=== PATIENT | male | born 1950 | race African-American/Black ===

== ENCOUNTER → 2017-03-13 | Outpatient (CLI) | payer OTHER ==
--- NOTE | 2017-03-13 10:25 | RAD ---
CT of the chest without contrast, 03/13/2017: History: Follow-up pulmonary opacity Noncontrast scans were obtained as requested. Multiplanar reconstructions were produced. Comparison is made to a study from 09/12/2016. On the previous study, a 35 x 19 mm pulmonary opacity was identified in the posterior costophrenic angle on the right. This density persists. It has flattened out slightly now measuring 34 x 14 mm. There is a new, separate, smaller peripheral parenchymal opacity abutting the pleura more laterally in the right lung base as seen on image 42 of series #2. There is smooth adjacent pleural thickening posteriorly in the right lower chest with a suggestion of a trace amount of right-sided pleural fluid. This has progressed slightly. There are other linear parenchymal opacities in both lung bases which are unchanged and are compatible with scarring. There is a 5 mm pulmonary nodule in the medial aspect of the right upper lobe as best seen on axial image 111 of series #8. Allowing for technical differences this appears to be unchanged. No new or enlarging pulmonary nodules are seen. There has been previous median sternotomy. Scattered coronary artery calcifications are present. 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 No mediastinal adenopathy is identified. The liver demonstrates decreased density in a mildly heterogeneous pattern compatible with patchy fatty infiltration. IMPRESSION: 1. Persistent right basilar pleural-parenchymal opacities, the largest component of which has decreased slightly in size since 09/12/2016. Other components have progressed slightly with a suggestion of a trace amount of associated pleural fluid. The findings suggest a combination of chronic inflammation and scarring. Previous pulmonary embolic disease is a possibility. A neoplastic component cannot be excluded. 2. Additional bibasilar linear pulmonary opacities are unchanged and probably represent scars. 3. Stable tiny right upper lobe pulmonary nodule. 4. Hepatic steatosis. PQRS Compliance Statement: One or more of the following individualized dose reduction techniques were utilized for this examination: 1. Automated exposure control 2. Adjustment of the mA and/or kV according to patient size 3. Use of iterative reconstruction technique
== END | disposition home or self-care (01) ==
LOC: CT 08:09
PROVIDERS: ATTEND Internal Medicine Pulmonary Disease
DX: R93.8 Abnormal findings on diagnostic imaging of other specified body structures (principal)
CPT/HCPCS: 71250

== ENCOUNTER 2018-06-09 16:48 | Inpatient (IN) | payer OTHER ==
[~2018-06-09] VITALS: Ht 177.8 cm; Wt 115.4 kg
--- NOTE | 2018-06-09 18:24 | EKG ---
[facility] [address] [place] [address] Test Date: 2018-06-09 Test Time: 18:18:50 Pat Name: SCOTTY CHÁVEZ Department: Room: Gender: M Lieutenant/Deputy: : 1950 Requested By: TERRY HER Order Number: [id number] Reading MD: Vinicio Hughes MD Measurements Intervals [place] Rate: 89 P: -62 CT: 164 QRS: 67 QRSD: 150 T: -47 QT: 400 QTc: 493 Interpretive Statements PROBABLE SR RBBB NON-SPECIFIC ST/T CHANGES PRIOR INFERIOR INFARCT Electronically Signed On 06-10-2018 15:29:31 CDT by Vinicio Hughes MD
[2018-06-09 18:25] LABS: BILIRUBIN,URINE NEGATIVE (NEG); CLARITY,URINE CLEAR; COLOR,URINE YELLOW; NITRITE,URINE NEGATIVE (NEG); PH,URINE 5.5; PROTEIN,URINE NEGATIVE (NEG-TRACE); UROBILINOGEN,URINE 0.2 mg/dL (0.2 mg/dL)
--- NOTE | 2018-06-09 18:28 | PHYS DOC ---
Past Medical History Past Medical History: CAD, Diabetes-Type II, DVT, High Cholesterol, Heart Disease, MA Past Surgical History: Coronary Bypass Surgery, Other Additional Past Surgical Histo: Trach Alcohol Use: None Drug Use: None Adult General Chief Complaint Chief Complaint: BLOOD SUGAR PROBLEM [facility] HPI Patient is a 68 year old male with a history of diabetes, stent placement 2 years ago and bypass 2 years ago presents the ED complaining of dizziness 1 week. States the dizziness is intermittent. Daughter is in the room and she states she thinks that he is not taking his medicines as he should. Associated symptoms include chest tightness. Rates the pain as 2 out of 10. States it is also intermittent. Denies shortness of breath, nausea/vomiting, abdominal pain, diarrhea, blood in stool, syncope, neck pain or fever. Review of Systems Review of Systems Constitutional: Denies fever or chills [] Eyes: Denies change in visual acuity, redness, or eye pain [] HENT: Denies nasal congestion or sore throat [] Respiratory: Denies cough or shortness of breath [] Cardiovascular: No additional information not addressed in HPI [] GI: Denies abdominal pain, nausea, vomiting, bloody stools or diarrhea [] : Denies dysuria or hematuria [] Musculoskeletal: Denies back pain or joint pain [] Integument: Denies rash or skin lesions [] Neurologic: Denies headache, focal weakness or sensory changes [] All other systems were reviewed and found to be within normal limits, except as documented in this note. Current Medications Current Medications Allergies Allergies Physical Exam Physical Exam Constitutional: Well developed, well nourished, no acute distress, non-toxic appearance. [] HENT: Normocephalic, atraumatic, bilateral external ears normal, oropharynx moist, no oral exudates, nose normal. [] Eyes: PERRLA, EOMI, conjunctiva normal, no discharge. [] Neck: Normal range of motion, no tenderness, supple, no stridor. [] Cardiovascular:Heart rate regular rhythm, no murmur [] Lungs & Thorax: Bilateral breath sounds clear to auscultation [] Abdomen: Bowel sounds normal, soft, no tenderness, no masses, no pulsatile masses. [] Skin: Warm, dry, no erythema, no rash. [] Back: No tenderness, no CVA tenderness. [] Extremities: No tenderness, no cyanosis, no clubbing, ROM intact, no edema. [] Neurologic: Alert and oriented X 3, normal motor function, normal sensory function, no focal deficits noted. [] Psychologic: Affect normal, judgement normal, mood normal. [] Current Patient Data Vital Signs EKG EKG EKG shows Sinus Rhythm at 89 BPM. diffuse t wave inversion. No STEMI.[] Radiology/Procedures Radiology/Procedures [] Course & Med Decision Making Course & Med Decision Making Pertinent Labs and Imaging studies reviewed. (See chart for details) Discussed lab and imaging findings with patient. Patient's glucose found to be and 1063. Patient started on 10 units of insulin, 2 L of fluids and IV insulin drip. Patient also hyperkalemic. Discussed case with attending physician. Calcium gluconate ordered. []Discussed case with hospitalist, Dr. Edwards. Agrees to admission and further management patient. Patient stable for admission. Dragon Disclaimer Dragon Disclaimer This electronic medical record was generated, in whole or in part, using a voice recognition dictation system. Departure Departure Impression: Primary Impression: DKA (diabetic ketoacidoses) Additional Impressions: Hyperkalemia Hyponatremia Disposition: ADMITTED INPATIENT Admitting Physician: Gill Edwards Condition: STABLE Referrals: ELIZABETH CARDOSO MD (PCP) Problem Qualifiers TERRY HER Jun 09, 2018 18:27
[2018-06-09 18:34] LABS: BACTERIA,URINE FEW /HPF (0-FEW); SPERM,URINE PRESENT /HPF; SQUAMOUS EPITHELIAL CELL,UR MOD /LPF
[2018-06-09 18:46] LABS: BASO # 0.1 x10^3/uL (0.0-0.2); BASO % 1 % (0-3); EOS # 0.1 x10^3/uL (0.0-0.7); EOS % 1 % (0-3); HEMATOCRIT 50.7 % (39.0-53.0); HEMOGLOBIN 16.2 g/dL (13.0-17.5); LYMPH # 2.2 x10^3/uL (1.0-4.8); LYMPH % 33 % (24-48); MEAN CORPUSCULAR HEMOGLOBIN 26 pg (25-35); MEAN CORPUSCULAR HGB CONC 32 g/dL (31-37); MEAN CORPUSCULAR VOLUME 82 fL (79-100); MONO # 0.5 x10^3/uL (0.0-1.1); MONO % 7 % (0-9); NEUT # 3.8 x10^3uL (1.8-7.7); NEUT % 58 % (31-73); PLATELET COUNT 222 x10^3/uL (140-400); RED CELL DISTRIBUTION WIDTH 16.9 % (11.5-14.5); WHITE BLOOD COUNT 6.7 x10^3/uL (4.0-11.0)
[2018-06-09 18:54] LABS: PROTHROMBIN TIME PATIENT 17.6 SEC (11.7-14.0)
[2018-06-09 19:04] LABS: CALCIUM 10.2 mg/dL (8.5-10.1); CREATININE 2.2 mg/dL (0.7-1.3); GFR 36.3
[2018-06-09 19:07] LABS: ALBUMIN 3.9 g/dL (3.4-5.0); ALBUMIN/GLOBULIN RATIO 0.8 (1.0-1.7); MAGNESIUM 2.7 mg/dL (1.8-2.4); TOTAL BILIRUBIN 0.7 mg/dL (0.2-1.0); TOTAL PROTEIN 8.9 g/dL (6.4-8.2)
[2018-06-09] MEDS ORDERED: INSULIN REGULAR VIAL 150 UNIT in 0.9 % SODIUM CHLORIDE 150ML 150 ML IV PRN ×2 (19:45→20:15)
[2018-06-09] MEDS ORDERED: IV NORMAL SALINE 1000ML BAG 1,000 ML IV ONE ×2 (19:45)
[2018-06-09] MEDS ORDERED: INSULIN REGULAR 100 UNIT/ML 3ML VIAL. IV ONE (19:45)
[2018-06-09] MEDS ORDERED: CALCIUM GLUCONATE 1,000 MG/10 ML VIAL. IVP ONE (20:00)
[2018-06-09] MEDS: IV DEXTROSE 5 %-0.45 % NACL 1,000 ML IV SCH (20:13)
[2018-06-09] MEDS ORDERED: SODIUM PHOSPHATE 10 MMOL in IV DEXTROSE 5% 250 ML IV PRN (20:15)
[2018-06-09] MEDS ORDERED: fentaNYL PF VIAL 100 MCG/2 ML VIAL IV PRN (20:15)
[2018-06-09] MEDS ORDERED: ONDANSETRON PF 4 MG/2 ML VIAL. IV PRN ×2 (20:15→20:30)
[2018-06-09] MEDS ORDERED: SODIUM PHOSPHATE 20 MMOL in IV DEXTROSE 5% 250 ML IV PRN (20:15)
[2018-06-09] MEDS ORDERED: cloNIDine HCL 0.1 MG TABLET PO PRN (20:15)
[2018-06-09] MEDS ORDERED: ACETAMINOPHEN 325 MG TABLET. PO PRN (20:15)
[2018-06-09] MEDS ORDERED: SODIUM PHOSPHATE 40 MMOL in IV NORMAL SALINE 500ML BAG 500 ML IV PRN (20:15)
[2018-06-09] MEDS ORDERED: ONDANSETRON ODT 4 MG TAB.RAPDIS. PO PRN (20:30)
[2018-06-09] MEDS ORDERED: MORPHINE SULFATE 2 MG/ML VIAL. IV PRN (20:30)
[2018-06-09] MEDS ORDERED: ACETAMINOPHEN 500 MG TABLET PO PRN (20:30)
[2018-06-09] MEDS ORDERED: TEMAZEPAM 7.5 MG CAPSULE PO PRN (20:30)
[2018-06-09 23:00] VITALS: BP 181/93
[2018-06-09 23:15] VITALS: BP 175/92
[2018-06-09] MEDS: IV NORMAL SALINE 1000ML BAG 1,000 ML IV SCH (23:29)
[2018-06-09 23:30] VITALS: BP 165/88
[2018-06-09 23:45] VITALS: BP 161/87
[2018-06-09 23:52] LABS: CALCIUM 9.8 mg/dL (8.5-10.1); GFR 40.5; MAGNESIUM 2.6 mg/dL (1.8-2.4); PHOSPHORUS 4.2 mg/dL (2.6-4.7); POTASSIUM 5.1 mmol/L (3.5-5.1)
[2018-06-09 23:59] VITALS: BP 144/86
[2018-06-10] VITALS (17 sets, daily range): BP systolic 106–159; BP diastolic 57–97
[2018-06-10] MEDS: IV DEXTROSE 5 %-0.45 % NACL 1,000 ML IV SCH (00:13)
[2018-06-10] MEDS: IV NORMAL SALINE 1000ML BAG 1,000 ML IV SCH ×5 (00:15→21:40)
[2018-06-10 06:02] LABS: BASO % 0 % (0-3); EOS # 0.1 x10^3/uL (0.0-0.7); EOS % 2 % (0-3); HEMATOCRIT 44.4 % (39.0-53.0); HEMOGLOBIN 14.5 g/dL (13.0-17.5); LYMPH # 2.4 x10^3/uL (1.0-4.8); LYMPH % 34 % (24-48); MEAN CORPUSCULAR HEMOGLOBIN 26 pg (25-35); MEAN CORPUSCULAR HGB CONC 33 g/dL (31-37); MEAN CORPUSCULAR VOLUME 79 fL (79-100); MONO # 0.7 x10^3/uL (0.0-1.1); MONO % 10 % (0-9); NEUT # 3.7 x10^3uL (1.8-7.7); NEUT % 53 % (31-73); PLATELET COUNT 205 x10^3/uL (140-400); RED BLOOD COUNT 5.61 x10^6/uL (4.30-5.70); RED CELL DISTRIBUTION WIDTH 16.1 % (11.5-14.5); WHITE BLOOD COUNT 6.9 x10^3/uL (4.0-11.0)
[2018-06-10 06:04] LABS: ALBUMIN 3.2 g/dL (3.4-5.0); ALBUMIN/GLOBULIN RATIO 0.8 (1.0-1.7); CALCIUM 9.3 mg/dL (8.5-10.1); CREATININE 1.7 mg/dL (0.7-1.3); GFR 48.9; MAGNESIUM 2.2 mg/dL (1.8-2.4); POTASSIUM 3.7 mmol/L (3.5-5.1); TOTAL BILIRUBIN 0.5 mg/dL (0.2-1.0); TOTAL PROTEIN 7.4 g/dL (6.4-8.2)
--- NOTE | 2018-06-10 08:10 | RAD ---
EXAM: Portable AP view of the chest DATE: 06/09/2018 6:23 PM INDICATION: LT sided chest pain x4 days weakness COMPARISON: No Prior FINDINGS: Changes of cardiothoracic surgery are seen with median sternotomy wires and mediastinal surgical clips. The heart is borderline enlarged. Aorta is tortuous. Mediastinal and hilar contours are normal. No focal parenchymal airspace opacity. No pleural effusion or pneumothorax. IMPRESSION: 1. No radiographic evidence for acute cardiopulmonary process. Electronically signed by: Dominguez Huang MD (06/10/2018 8:06 AM) [facility]
[2018-06-10] MEDS ORDERED: DEXTROSE 50% 25 GM / 50ML DISP.SYRIN. IV PRN (09:45)
[2018-06-10] MEDS ORDERED: INSULIN GLARGINE 300 UNITS/3 ML INSULN.PEN. SQ ONE (09:45)
--- NOTE | 2018-06-10 11:40 | HP ---
ADMIT DATE: 06/10/2018 CHIEF COMPLAINT: Hyperglycemia. HISTORY OF PRESENT ILLNESS: The patient is a pleasant 68-year-old male who is on Glucophage. I am not sure if he is really compliant with it. He presented to the ER with a week of dizziness and elevated glucose. While in the ER, he was noted to have hyperglycemia and anion gap metabolic acidosis. He has now been admitted to the ICU on insulin drip. His gap was at 16, is now improving. PAST MEDICAL HISTORY: Noncompliance, diabetes, hypertension, CHF, DVT, coronary artery bypass, myocardial infarction, tracheostomy (that has been reversed). ALLERGIES: None. FAMILY HISTORY: Diabetes. SOCIAL HISTORY: He drinks socially. No smoking or drugs. MEDICATIONS: Reviewed, please refer to the MRAD. REVIEW OF SYSTEMS: GENERAL: No history of weight change, weakness or fevers. SKIN: No bruising, hair changes or rashes. EYES: No blurred, double or loss of vision. NOSE AND THROAT: No history of nosebleeds, hoarseness or sore throat. HEART: No history of palpitations, chest pain or shortness of breath on exertion. LUNGS: Denies cough, hemoptysis, wheezing or shortness of breath. GASTROINTESTINAL: Denies changes in appetite, nausea, vomiting, diarrhea or constipation. GENITOURINARY: No history of frequency, urgency, hesitancy or nocturia. NEUROLOGIC: Denies history of numbness, tingling, tremor or weakness. PSYCHIATRIC: No history of panic, anxiety or depression. ENDOCRINE: No history of heat or cold intolerance, polyuria or polydipsia. EXTREMITIES: Denies muscle weakness, joint pain, pain on walking or stiffness. PHYSICAL EXAMINATION: VITAL SIGNS: Temperature afebrile, pulse 92, respirations 18, blood pressure 113/60. GENERAL: He is awake, cooperative. HEART: Normal S1, S2. LUNGS: Clear. ABDOMEN: Soft. EXTREMITIES: No edema. SKIN: No rashes. ENDOCRINE: No thyromegaly. LYMPHATICS: No cervical nodes. HEMATOPOIETIC: No bruising. LABORATORY DATA: Anion gap was 16, has now cleared to 11. ASSESSMENT AND PLAN: Resolving diabetic ketoacidosis. We will start NovoLog 6 units with meals and Lantus 10 units a day plus a sliding scale insulin. Diabetic education. Transfer to the medical floor. Continue other home medicines. Full code. IV fluids. Repeat his labs tomorrow, butch Thomas. XAVI CASTANEDA DO DR: ANAI/marleny JOB#: [id number] / [id number]
[2018-06-10] MEDS: INSULIN LISPRO 300 UNITS/3 ML INSULN.PEN. SQ SCH ×2 (12:00→17:32)
[2018-06-10 16:19] LABS: HEMOGLOBIN A1C 12.2 % (4.8-5.6)
[2018-06-10] MEDS ORDERED: INSULIN LISPRO 300 UNITS/3 ML INSULN.PEN. SQ ONE (23:00)
[2018-06-11 03:00] VITALS: BP 157/98
[2018-06-11 07:00] VITALS: BP 182/111
[2018-06-11] MEDS: INSULIN LISPRO 300 UNITS/3 ML INSULN.PEN. SQ SCH ×2 (08:00→18:21)
[2018-06-11] MEDS: IV NORMAL SALINE 1000ML BAG 1,000 ML IV SCH ×3 (08:16→20:51)
[2018-06-11] MEDS ORDERED: INSULIN GLARGINE 300 UNITS/3 ML INSULN.PEN. SQ STA (08:20)
[2018-06-11] MEDS ORDERED: INSU100I17 SQ (10:44)
[2018-06-11] MEDS ORDERED: INSU100I13 SQ (10:44)
--- NOTE | 2018-06-11 10:46 | PDOC3 ---
Discharge Summary Visit Information Date of Admission: Jun 09, 2018 Date of Discharge: Jun 11, 2018 Admitting Diagnosis Comment: s/p DKA Diabetes type 2 or type I.5, with hemoglobin A1c 12 AK I possibly on CK D Morbid obesity 36.2 Noncompliance Final Diagnosis Problems Medical Problems: (1) DKA (diabetic ketoacidoses) Status: Acute (2) Hyperkalemia Status: Acute (3) Hyponatremia Status: Acute Brief Hospital Course Allergies Allergies Coded Allergies Type Severity Reaction Last Updated Verified No Known Drug Allergies 06/09/18 No Vital Signs Vital Signs Date Time Temp Pulse Resp B/P (MAP) Pulse Ox O2 Delivery O2 Flow Rate FiO2 06/11/18 07:35 74 182/111 06/11/18 07:00 97.5 16 98 Room Air 97.5 Lab Results Laboratory Tests Test 06/09/18 18:10 06/09/18 18:35 06/09/18 23:30 06/10/18 00:23 Urine Collection Type Unknown Urine Color Yellow Urine Clarity Clear Urine pH 5.5 Urine Specific For[place] >=1.030 Urine Protein Negative mg/dL (NEG-TRACE) Urine Glucose (UA) >=1000 mg/dL (NEG) Urine Ketones (Stick) 15 mg/dL (NEG) Urine Blood Negative (NEG) Urine Nitrite Negative (NEG) Urine Bilirubin Negative (NEG) Urine Urobilinogen Dipstick 0.2 mg/dL (0.2 mg/dL) Urine Leukocyte Esterase Negative (NEG) Urine RBC 1-2 /HPF (0-2) Urine WBC 1-4 /HPF (0-4) Urine Squamous Epithelial Cells Mod /LPF Urine Bacteria Few /HPF (0-FEW) Urine Sperm Present /HPF White Blood Count 6.7 x10^3/uL (4.0-11.0) Red Blood Count 6.20 x10^6/uL (4.30-5.70) Hemoglobin 16.2 g/dL (13.0-17.5) Hematocrit 50.7 % (39.0-53.0) Mean Corpuscular Volume 82 fL (79-100) Mean Corpuscular Hemoglobin 26 pg (25-35) Mean Corpuscular Hemoglobin Concent 32 g/dL (31-37) Red Cell Distribution Width 16.9 % (11.5-14.5) Platelet Count 222 x10^3/uL (140-400) Neutrophils (%) (Auto) 58 % (31-73) Lymphocytes (%) (Auto) 33 % (24-48) Monocytes (%) (Auto) 7 % (0-9) Eosinophils (%) (Auto) 1 % (0-3) Basophils (%) (Auto) 1 % (0-3) Neutrophils # (Auto) 3.8 x10^3uL (1.8-7.7) Lymphocytes # (Auto) 2.2 x10^3/uL (1.0-4.8) Monocytes # (Auto) 0.5 x10^3/uL (0.0-1.1) Eosinophils # (Auto) 0.1 x10^3/uL (0.0-0.7) Basophils # (Auto) 0.1 x10^3/uL (0.0-0.2) Prothrombin Time 17.6 SEC (11.7-14.0) Prothromb Time International Ratio 1.5 (0.8-1.1) Sodium Level 124 mmol/L (136-145) 134 mmol/L (136-145) Potassium Level 6.0 mmol/L (3.5-5.1) 5.1 mmol/L (3.5-5.1) Chloride Level 91 mmol/L (98-107) 100 mmol/L (98-107) Carbon Dioxide Level 17 mmol/L (21-32) 20 mmol/L (21-32) Anion Gap 16 (6-14) 14 (6-14) Blood Urea Nitrogen 40 mg/dL (8-26) 36 mg/dL (8-26) Creatinine 2.2 mg/dL (0.7-1.3) 2.0 mg/dL (0.7-1.3) Estimated GFR (Cockcroft-Gault) 36.3 40.5 BUN/Creatinine Ratio 18 (6-20) Glucose Level 1063 mg/dL (70-99) 638 mg/dL (70-99) Hemoglobin A1c 12.2 % (4.8-5.6) Calcium Level 10.2 mg/dL (8.5-10.1) 9.8 mg/dL (8.5-10.1) Magnesium Level 2.7 mg/dL (1.8-2.4) 2.6 mg/dL (1.8-2.4) Total Bilirubin 0.7 mg/dL (0.2-1.0) Aspartate Amino Transf (AST/SGOT) 8 U/L (15-37) Alanine Aminotransferase (ALT/SGPT) 23 U/L (16-63) Alkaline Phosphatase 150 U/L (46-116) Creatine Kinase 144 U/L (39-308) Troponin I Quantitative 0.022 ng/mL (0.000-0.055) [id number]-U-Type Natriuretic Peptide 423 pg/mL (0-124) Total Protein 8.9 g/dL (6.4-8.2) Albumin 3.9 g/dL (3.4-5.0) Albumin/Globulin Ratio 0.8 (1.0-1.7) Lipase 98 U/L (73-393) Phosphorus Level 4.2 mg/dL (2.6-4.7) Nasal Screen MRSA (PCR) Negative (Negative) Test 06/10/18 01:00 06/10/18 02:06 06/10/18 02:10 06/10/18 03:16 Glucose (Fingerstick) 572 mg/dL (70-99) 415 mg/dL (70-99) 347 mg/dL (70-99) Troponin I Quantitative 0.050 ng/mL (0.000-0.055) Test 06/10/18 04:36 06/10/18 05:20 06/10/18 05:54 06/10/18 06:36 Glucose (Fingerstick) 303 mg/dL (70-99) 237 mg/dL (70-99) 200 mg/dL (70-99) White Blood Count 6.9 x10^3/uL (4.0-11.0) Red Blood Count 5.61 x10^6/uL (4.30-5.70) Hemoglobin 14.5 g/dL (13.0-17.5) Hematocrit 44.4 % (39.0-53.0) Mean Corpuscular Volume 79 fL (79-100) Mean Corpuscular Hemoglobin 26 pg (25-35) Mean Corpuscular Hemoglobin Concent 33 g/dL (31-37) Red Cell Distribution Width 16.1 % (11.5-14.5) Platelet Count 205 x10^3/uL (140-400) Neutrophils (%) (Auto) 53 % (31-73) Lymphocytes (%) (Auto) 34 % (24-48) Monocytes (%) (Auto) 10 % (0-9) Eosinophils (%) (Auto) 2 % (0-3) Basophils (%) (Auto) 0 % (0-3) Neutrophils # (Auto) 3.7 x10^3uL (1.8-7.7) Lymphocytes # (Auto) 2.4 x10^3/uL (1.0-4.8) Monocytes # (Auto) 0.7 x10^3/uL (0.0-1.1) Eosinophils # (Auto) 0.1 x10^3/uL (0.0-0.7) Basophils # (Auto) 0.0 x10^3/uL (0.0-0.2) Sodium Level 140 mmol/L (136-145) Potassium Level 3.7 mmol/L (3.5-5.1) Chloride Level 107 mmol/L (98-107) Carbon Dioxide Level 22 mmol/L (21-32) Anion Gap 11 (6-14) Blood Urea Nitrogen 31 mg/dL (8-26) Creatinine 1.7 mg/dL (0.7-1.3) Estimated GFR (Cockcroft-Gault) 48.9 BUN/Creatinine Ratio 18 (6-20) Glucose Level 265 mg/dL (70-99) Calcium Level 9.3 mg/dL (8.5-10.1) Magnesium Level 2.2 mg/dL (1.8-2.4) Total Bilirubin 0.5 mg/dL (0.2-1.0) Aspartate Amino Transf (AST/SGOT) 7 U/L (15-37) Alanine Aminotransferase (ALT/SGPT) 18 U/L (16-63) Alkaline Phosphatase 99 U/L (46-116) Total Protein 7.4 g/dL (6.4-8.2) Albumin 3.2 g/dL (3.4-5.0) Albumin/Globulin Ratio 0.8 (1.0-1.7) Test 06/10/18 07:21 06/10/18 08:13 06/10/18 09:17 06/10/18 17:16 Glucose (Fingerstick) 183 mg/dL (70-99) 157 mg/dL (70-99) 192 mg/dL (70-99) 249 mg/dL (70-99) Test 06/10/18 21:35 06/11/18 07:17 Glucose (Fingerstick) 428 mg/dL (70-99) 345 mg/dL (70-99) Laboratory Tests Test 06/10/18 17:16 06/10/18 21:35 06/11/18 07:17 Glucose (Fingerstick) 249 mg/dL (70-99) 428 mg/dL (70-99) 345 mg/dL (70-99) Brief Hospital Course Mr. Javier is a 68 old obese -[place] male, admitted to the ICU with DKA with anion gap acidosis normal bicarbonate but blood sugar of greater than 1000, and an anion gap at 16. Overnight in the ICU, DKA protocol, transferred out of ICU on day #2. I am needing to start NovoLog 10 3 times a day and Lantus or Levemir 30 units daily at bedtime. I cannot start metformin because his creatinine is more than 1.2. Glyburide will not help as his BS are too high for oHA. Hemoglobin A1c is 12. Heavy education counseling, discussed with RN and at bedside Rx on chart Discharge time 31 minutes. 50% DC education, insulin prescription plans instructions etc. Compliance cannot be overemphasize. I have some reservations that he will be compliant. He seems to have poor insight on his overall health. Needs to establish PCP too - we are giving a booklet of PCP on his dc Discharge Information Condition at Discharge: Improved, Stable Follow Up: Weeks (PCP in 2-4 weeks regarding Accu-Cheks) Disposition/Orders: D/C to Home Scheduled Insulin Aspart (Novolog Flexpen) 100 Unit/1 Ml Insuln.pen, 10 UNIT SQ TID for 30 Days Prescribed by: BRANDI VILLASENOR on 06/11/18 1044 Insulin Glargine,Hum.rec.anlog (Lantus Solostar) 100 Unit/1 Ml Insuln.pen, 30 UNIT SQ QHS, #15 Ref 3 Prescribed by: BRANDI VILLASENOR on 06/11/18 1044 BRANDI VILLASENOR MD Jun 11, 2018 10:46
[2018-06-11 11:00] VITALS: BP 169/91
[2018-06-11] MEDS ORDERED: INSULIN LISPRO 300 UNITS/3 ML INSULN.PEN. SQ SCH (12:00)
[2018-06-11] MEDS ORDERED: INSULIN LISPRO 300 UNITS/3 ML INSULN.PEN. SQ ONE (12:30)
--- NOTE | 2018-06-11 12:30 | PDOC ---
Provider Note Provider Note CAncel DC, blood sugar lunchtime 445 Increase Lantus to 30 twice a day Increase NovoLog to 20 3 times a day Keep sliding scale insulin high-dose 30 units 1 now for that blood sugar 450 BRANDI VILLASENOR MD Jun 11, 2018 12:30
[2018-06-11 15:00] VITALS: BP 147/89
[2018-06-11 19:45] VITALS: BP 144/93
[2018-06-11] MEDS: INSULIN GLARGINE 300 UNITS/3 ML INSULN.PEN. SQ SCH (20:54)
[2018-06-11] MEDS ORDERED: INSULIN GLARGINE 300 UNITS/3 ML INSULN.PEN. SQ SCH (21:00)
[2018-06-11 23:00] VITALS: BP 142/93
[2018-06-12 03:00] VITALS: BP 141/61
[2018-06-12 07:00] VITALS: BP 152/96
[2018-06-12] MEDS: IV NORMAL SALINE 1000ML BAG 1,000 ML IV SCH ×3 (09:00→20:24)
[2018-06-12] MEDS: INSULIN GLARGINE 300 UNITS/3 ML INSULN.PEN. SQ SCH ×2 (09:13→20:27)
[2018-06-12] MEDS: INSULIN LISPRO 300 UNITS/3 ML INSULN.PEN. SQ SCH ×3 (09:13→16:54)
--- NOTE | 2018-06-12 10:48 | PDOC ---
PROGRESS NOTES Chief Complaint Chief Complaint 1-Dibetic ketoacidosis 2-DM type II uncontrolled insulin requiring 3-Hyperkalemia, hyponatremia 4-CAD, Hx CABG 5-Hx Asthma 6-CKD likely due to DM 7-HTN, HCVD add ARB 8-fatty liver 9- Obesity History of Present Illness History of Present Illness BS still elevated , insulin adjusted, BP also elevated add ARB for kidney protection, check renal sono, check lipid status continue hydration and recheck lab in AM Vitals Vitals Vital Signs Date Time Temp Pulse Resp B/P (MAP) Pulse Ox O2 Delivery O2 Flow Rate FiO2 06/12/18 07:00 97.5 80 18 152/96 (114) 99 Room Air 97.5 Physical Exam General: Alert, Oriented X3, Cooperative Heart: Regular rate, Normal S1, Normal S2 Lungs: Clear Abdomen: Normal bowel sounds, Soft Extremities: No edema Labs LABS Laboratory Tests Test 06/11/18 11:20 06/11/18 16:40 06/11/18 20:48 06/12/18 07:48 Glucose (Fingerstick) 442 mg/dL (70-99) 316 mg/dL (70-99) 315 mg/dL (70-99) 241 mg/dL (70-99) Assessment and Plan Assessmemt and Plan Problems Medical Problems: (1) DKA (diabetic ketoacidoses) Status: Acute (2) Hyperkalemia Status: Acute (3) Hyponatremia Status: Acute Comment Review of Relevant I have reviewed the following items frank (where applicable) has been applied. Labs Laboratory Tests Test 06/10/18 11:53 06/10/18 17:16 06/10/18 21:35 06/11/18 07:17 Glucose (Fingerstick) 146 mg/dL (70-99) 249 mg/dL (70-99) 428 mg/dL (70-99) 345 mg/dL (70-99) Test 06/11/18 11:20 06/11/18 16:40 06/11/18 20:48 06/12/18 07:48 Glucose (Fingerstick) 442 mg/dL (70-99) 316 mg/dL (70-99) 315 mg/dL (70-99) 241 mg/dL (70-99) Laboratory Tests Test 06/11/18 11:20 06/11/18 16:40 06/11/18 20:48 06/12/18 07:48 Glucose (Fingerstick) 442 mg/dL (70-99) 316 mg/dL (70-99) 315 mg/dL (70-99) 241 mg/dL (70-99) Medications Current Medications Sodium Chloride 1,000 ml @ 1,000 mls/hr 1X ONCE IV Last administered on at 19:41; Start 06/09/18 at 19:45; Stop 06/09/18 at 20:44; Status DC Sodium Chloride 1,000 ml @ 1,000 mls/hr 1X ONCE IV Last administered on at 19:43; Start 06/09/18 at 19:45; Stop 06/09/18 at 20:44; Status DC Insulin Human Regular (HumuLIN R VIAL) 10 unit 1X ONCE IV Last administered on 06/09/18at 20:02; Start 06/09/18 at 19:45; Stop 06/09/18 at 19:46; Status DC Insulin Human Regular 150 unit/ Sodium Chloride 151.5 ml @ 0 mls/hr CONT PRN IV SEE I/O RECORD; Start 06/09/18 at 19:45; Stop 06/09/18 at 23:12; Status DC Calcium Gluconate (Calcium Gluconate) 1,000 mg 1X ONCE IVP Last administered on 06/09/18at 20:00; Start 06/09/18 at 20:00; Stop 06/09/18 at 20:01; Status DC Sodium Chloride 1,000 ml @ 250 mls/hr Q4H IV Last administered on 06/09/18at 23 :29; Start 06/09/18 at 20:15; Stop 06/10/18 at 00:56; Status DC Dextrose/Sodium Chloride 1,000 ml @ 250 mls/hr Q4H IV ; Start 06/09/18 at 20:13 ; Stop 06/10/18 at 01:12; Status DC Insulin Human Regular 150 unit/ Sodium Chloride 151.5 ml @ 0 mls/hr CONT PRN PRN IV PER PROTOCOL Last administered on 06/10/18at 01:24; Start 06/09/18 at 20: 15; Stop 06/10/18 at 13:03; Status DC Sodium Phosphate 40 mmol/Sodium Chloride 513.3333 ml @ 83.3 mls/hr 1X PRN PRN IV SEE COMMENTS; Start 06/09/18 at 20:15; Stop 06/10/18 at 13:03; Status DC Sodium Phosphate 20 mmol/Dextrose 256.6667 ml @ 62.5 mls/hr 1X PRN PRN IV SEE COMMENTS; Start 06/09/18 at 20:15; Stop 06/10/18 at 13:03; Status DC Sodium Phosphate 10 mmol/Dextrose 253.3333 ml @ 62.5 mls/hr 1X PRN PRN IV SEE COMMENTS; Start 06/09/18 at 20:15; Stop 06/10/18 at 13:03; Status DC Ondansetron HCl (Zofran) 4 mg PRN Q8HRS PRN IV NAUSEA/VOMITING; Start 06/09/18 at 20:15; Stop 06/09/18 at 20:33; Status DC Fentanyl Citrate (Fentanyl 2ml Vial) 50 mcg PRN Q1HR PRN IV PAIN; Start at 20:15; Stop 06/10/18 at 09:55; Status DC Acetaminophen (Tylenol) 650 mg PRN Q4HRS PRN PO FEVER; Start 06/09/18 at 20:15 ; Stop 06/10/18 at 09:55; Status DC Clonidine HCl (Catapres) 0.1 mg PRN Q1HR PRN PO HYPERTENSION, SEE COMMENTS Last administered on 06/11/18at 07:35; Start 06/09/18 at 20:15 Acetaminophen (Tylenol) 500 mg PRN Q6HRS PRN PO MILD PAIN / TEMP; Start at 20:30 Ondansetron HCl (Zofran) 4 mg PRN Q6HRS PRN IV NAUSEA/VOMITING 1ST CHOICE; Start 06/09/18 at 20:30 Ondansetron HCl (Zofran Odt) 4 mg PRN Q6HRS PRN PO NAUSEA/VOMITING 1ST CHOICE; Start 06/09/18 at 20:30 Morphine Sulfate (Morphine Sulfate) 2 mg PRN Q2HR PRN IV PAIN MILD; Start 06/09 at 20:30 Temazepam (Restoril) 7.5 mg PRN QHS PRN PO INSOMNIA; Start 06/09/18 at 20:30 Sodium Chloride 1,000 ml @ 125 mls/hr Q8H IV Last administered on 06/12/18at 09 :00; Start 06/10/18 at 01:00 Insulin Human Lispro (HumaLOG) 6 units TIDWMEALS SQ Last administered on at 17:32; Start 06/10/18 at 12:00; Stop 06/11/18 at 08:22; Status DC Dextrose (Dextrose 50%-Water Syringe) 12.5 gm PRN Q15MIN PRN IV SEE COMMENTS; Start 06/10/18 at 09:45 Insulin Glargine (Lantus) 10 units ONCE ONCE SQ Last administered on at 10:56; Start 06/10/18 at 09:45; Stop 06/10/18 at 10:46; Status DC Insulin Human Lispro (HumaLOG) 9 units 1X ONCE SQ Last administered on at 23:16; Start 06/10/18 at 23:00; Stop 06/10/18 at 23:01; Status DC Insulin Human Lispro (HumaLOG) 10 units TIDWMEALS SQ ; Start 06/11/18 at 12:00; Stop 06/11/18 at 12:29; Status DC Insulin Glargine (Lantus) 30 units QHS SQ ; Start 06/11/18 at 21:00; Stop at 21:00; Status DC Insulin Glargine (Lantus) 10 units 1X STAT SQ Last administered on 06/11/18at 08:32; Start 06/11/18 at 08:20; Stop 06/11/18 at 08:25; Status DC Insulin Glargine (Lantus) 30 units BID SQ Last administered on 06/12/18at 09:13 ; Start 06/11/18 at 21:00 Insulin Human Lispro (HumaLOG) 20 units TIDWMEALS SQ Last administered on at 09:13; Start 06/11/18 at 17:00 Insulin Human Lispro (HumaLOG) 30 units 1X ONCE SQ Last administered on at 13:14; Start 06/11/18 at 12:30; Stop 06/11/18 at 12:35; Status DC Active Scripts Active Lantus Solostar (Insulin Glargine,Hum.rec.anlog) 100 Unit/1 Ml Insuln.pen 30 Unit SQ QHS Novolog Flexpen (Insulin Aspart) 100 Unit/1 Ml Insuln.pen 10 Unit SQ TID 30 Days Vitals/I & O Vital Sign - Last 24 Hours 06/11/18 06/11/18 06/11/18 06/11/18 11:00 15:00 19:45 19:58 Temp 96.8 97.5 96.6 96.8 97.5 96.6 Pulse 72 78 73 Resp 16 18 20 B/P (MAP) 169/91 (117) 147/89 (108) 144/93 (110) Pulse Ox 97 96 98 O2 Delivery Room Air Room Air Room Air Room Air 06/11/18 06/12/18 06/12/18 23:00 03:00 07:00 Temp 97.5 97.5 97.5 97.5 97.5 97.5 Pulse 69 63 80 Resp 18 18 18 B/P (MAP) 142/93 (109) 141/61 (87) 152/96 (114) Pulse Ox 96 99 99 O2 Delivery Room Air Room Air Room Air Intake and Output 06/11/18 06/11/18 06/12/18 15:00 23:00 07:00 Intake Total 1360 ml 1120 ml 120 ml Output Total 450 ml Balance 1360 ml 1120 ml -330 ml GREGORY ARANDA MD Jun 12, 2018 10:47
[2018-06-12] MEDS: LOSARTAN POTASSIUM 50 MG TABLET. PO SCH (11:44)
[2018-06-12 11:53] VITALS: BP 132/95
--- NOTE | 2018-06-12 12:16 | RAD ---
Indication: Increased BUN/creatinine. TECHNIQUE: Ultrasound of the bilateral kidneys and bladder COMPARISON: None FINDINGS: The left kidney measures 11.6 x 7.8 x 5.3 cm (longitudinal, AP, transverse) without hydronephrosis. The prevoid bladder volume is 46 cc. No ureteral jets seen. The left kidney measures 11.1 x 6.3 x 5.7 cm without hydronephrosis. IMPRESSION: No hydronephrosis or obvious renal lesion. Electronically signed by: Jey Jeong DO (06/12/2018 12:12 PM) [facility]
[2018-06-12 15:40] VITALS: BP 125/102
[2018-06-12 19:10] VITALS: BP 142/98
[2018-06-12 23:00] VITALS: BP 142/79
[2018-06-13 03:30] VITALS: BP 122/77
[2018-06-13 05:39] LABS: HEMATOCRIT 42.9 % (39.0-53.0); HEMOGLOBIN 14.2 g/dL (13.0-17.5); RED BLOOD COUNT 5.4 x10^6/uL (4.30-5.70); RED CELL DISTRIBUTION WIDTH 16.3 % (11.5-14.5); WHITE BLOOD COUNT 4.5 x10^3/uL (4.0-11.0)
[2018-06-13 06:13] LABS: ALBUMIN 2.9 g/dL (3.4-5.0); ALBUMIN/GLOBULIN RATIO 0.8 (1.0-1.7); CALCIUM 8.6 mg/dL (8.5-10.1); CREATININE 1.2 mg/dL (0.7-1.3); GFR 73.1; POTASSIUM 3.5 mmol/L (3.5-5.1); TOTAL BILIRUBIN 0.5 mg/dL (0.2-1.0); TOTAL PROTEIN 6.5 g/dL (6.4-8.2)
[2018-06-13 06:25] LABS: CHOLESTEROL/HDL RATIO 5.9
[2018-06-13 07:00] VITALS: BP 150/103
[2018-06-13] MEDS: LOSARTAN POTASSIUM 50 MG TABLET. PO SCH (09:19)
[2018-06-13] MEDS: INSULIN LISPRO 300 UNITS/3 ML INSULN.PEN. SQ SCH ×3 (09:24→17:14)
[2018-06-13] MEDS: INSULIN GLARGINE 300 UNITS/3 ML INSULN.PEN. SQ SCH (09:24)
[2018-06-13 11:00] VITALS: BP 147/77
--- NOTE | 2018-06-13 14:45 | PDOC ---
PROGRESS NOTES Chief Complaint Chief Complaint 1-Dibetic ketoacidosis 2-DM type II uncontrolled insulin requiring 3-Hyperkalemia, hyponatremia 4-CAD, Hx CABG 5-Hx Asthma 6-CKD likely due to DM 7-HTN, HCVD add ARB 8-fatty liver 9- Obesity History of Present Illness History of Present Illness BS better , insulin adjusted, BP better started ARB for kidney protection he brought his home meds today and he is supposed to be taking Losartan, lipitor, Xarelto and metformin, instructed to continue all, renal sono no obstructive uropathy, home today Vitals Vitals Vital Signs Date Time Temp Pulse Resp B/P (MAP) Pulse Ox O2 Delivery O2 Flow Rate FiO2 06/13/18 11:00 97.5 78 16 147/77 (100) 98 Room Air 97.5 Physical Exam General: Alert, Oriented X3, Cooperative Heart: Regular rate, Normal S1, Normal S2 Lungs: Clear Abdomen: Normal bowel sounds, Soft Extremities: No edema Labs LABS Laboratory Tests Test 06/12/18 16:18 06/12/18 20:23 06/13/18 05:10 06/13/18 07:41 Glucose (Fingerstick) 229 mg/dL (70-99) 174 mg/dL (70-99) 111 mg/dL (70-99) White Blood Count 4.5 x10^3/uL (4.0-11.0) Red Blood Count 5.40 x10^6/uL (4.30-5.70) Hemoglobin 14.2 g/dL (13.0-17.5) Hematocrit 42.9 % (39.0-53.0) Mean Corpuscular Volume 80 fL (79-100) Mean Corpuscular Hemoglobin 26 pg (25-35) Mean Corpuscular Hemoglobin Concent 33 g/dL (31-37) Red Cell Distribution Width 16.3 % (11.5-14.5) Platelet Count 148 x10^3/uL (140-400) Erythrocyte Sedimentation Rate 5 (0-15) Sodium Level 140 mmol/L (136-145) Potassium Level 3.5 mmol/L (3.5-5.1) Chloride Level 106 mmol/L (98-107) Carbon Dioxide Level 24 mmol/L (21-32) Anion Gap 10 (6-14) Blood Urea Nitrogen 10 mg/dL (8-26) Creatinine 1.2 mg/dL (0.7-1.3) Estimated GFR (Cockcroft-Gault) 73.1 BUN/Creatinine Ratio 8 (6-20) Glucose Level 100 mg/dL (70-99) Calcium Level 8.6 mg/dL (8.5-10.1) Total Bilirubin 0.5 mg/dL (0.2-1.0) Aspartate Amino Transf (AST/SGOT) 37 U/L (15-37) Alanine Aminotransferase (ALT/SGPT) 41 U/L (16-63) Alkaline Phosphatase 75 U/L (46-116) Total Protein 6.5 g/dL (6.4-8.2) Albumin 2.9 g/dL (3.4-5.0) Albumin/Globulin Ratio 0.8 (1.0-1.7) Triglycerides Level 252 mg/dL (0-150) Cholesterol Level 153 mg/dL (0-200) LDL Cholesterol, Calculated 77 mg/dL (0-100) VLDL Cholesterol, Calculated 50 mg/dL (0-40) Non-HDL Cholesterol Calculated 127 mg/dL (0-129) HDL Cholesterol 26 mg/dL (40-60) Cholesterol/HDL Ratio 5.9 Thyroid Stimulating Hormone (TSH) 3.152 uIU/mL (0.358-3.74) Test 06/13/18 11:11 Glucose (Fingerstick) 364 mg/dL (70-99) Assessment and Plan Assessmemt and Plan Problems Medical Problems: (1) DKA (diabetic ketoacidoses) Status: Acute (2) Hyperkalemia Status: Acute (3) Hyponatremia Status: Acute Comment Review of Relevant I have reviewed the following items frank (where applicable) has been applied. Labs Laboratory Tests Test 06/11/18 16:40 06/11/18 20:48 06/12/18 07:48 06/12/18 10:58 Glucose (Fingerstick) 316 mg/dL (70-99) 315 mg/dL (70-99) 241 mg/dL (70-99) 322 mg/dL (70-99) Test 06/12/18 16:18 06/12/18 20:23 06/13/18 05:10 06/13/18 07:41 Glucose (Fingerstick) 229 mg/dL (70-99) 174 mg/dL (70-99) 111 mg/dL (70-99) White Blood Count 4.5 x10^3/uL (4.0-11.0) Red Blood Count 5.40 x10^6/uL (4.30-5.70) Hemoglobin 14.2 g/dL (13.0-17.5) Hematocrit 42.9 % (39.0-53.0) Mean Corpuscular Volume 80 fL (79-100) Mean Corpuscular Hemoglobin 26 pg (25-35) Mean Corpuscular Hemoglobin Concent 33 g/dL (31-37) Red Cell Distribution Width 16.3 % (11.5-14.5) Platelet Count 148 x10^3/uL (140-400) Erythrocyte Sedimentation Rate 5 (0-15) Sodium Level 140 mmol/L (136-145) Potassium Level 3.5 mmol/L (3.5-5.1) Chloride Level 106 mmol/L (98-107) Carbon Dioxide Level 24 mmol/L (21-32) Anion Gap 10 (6-14) Blood Urea Nitrogen 10 mg/dL (8-26) Creatinine 1.2 mg/dL (0.7-1.3) Estimated GFR (Cockcroft-Gault) 73.1 BUN/Creatinine Ratio 8 (6-20) Glucose Level 100 mg/dL (70-99) Calcium Level 8.6 mg/dL (8.5-10.1) Total Bilirubin 0.5 mg/dL (0.2-1.0) Aspartate Amino Transf (AST/SGOT) 37 U/L (15-37) Alanine Aminotransferase (ALT/SGPT) 41 U/L (16-63) Alkaline Phosphatase 75 U/L (46-116) Total Protein 6.5 g/dL (6.4-8.2) Albumin 2.9 g/dL (3.4-5.0) Albumin/Globulin Ratio 0.8 (1.0-1.7) Triglycerides Level 252 mg/dL (0-150) Cholesterol Level 153 mg/dL (0-200) LDL Cholesterol, Calculated 77 mg/dL (0-100) VLDL Cholesterol, Calculated 50 mg/dL (0-40) Non-HDL Cholesterol Calculated 127 mg/dL (0-129) HDL Cholesterol 26 mg/dL (40-60) Cholesterol/HDL Ratio 5.9 Thyroid Stimulating Hormone (TSH) 3.152 uIU/mL (0.358-3.74) Test 06/13/18 11:11 Glucose (Fingerstick) 364 mg/dL (70-99) Laboratory Tests Test 06/12/18 16:18 06/12/18 20:23 06/13/18 05:10 06/13/18 07:41 Glucose (Fingerstick) 229 mg/dL (70-99) 174 mg/dL (70-99) 111 mg/dL (70-99) White Blood Count 4.5 x10^3/uL (4.0-11.0) Red Blood Count 5.40 x10^6/uL (4.30-5.70) Hemoglobin 14.2 g/dL (13.0-17.5) Hematocrit 42.9 % (39.0-53.0) Mean Corpuscular Volume 80 fL (79-100) Mean Corpuscular Hemoglobin 26 pg (25-35) Mean Corpuscular Hemoglobin Concent 33 g/dL (31-37) Red Cell Distribution Width 16.3 % (11.5-14.5) Platelet Count 148 x10^3/uL (140-400) Erythrocyte Sedimentation Rate 5 (0-15) Sodium Level 140 mmol/L (136-145) Potassium Level 3.5 mmol/L (3.5-5.1) Chloride Level 106 mmol/L (98-107) Carbon Dioxide Level 24 mmol/L (21-32) Anion Gap 10 (6-14) Blood Urea Nitrogen 10 mg/dL (8-26) Creatinine 1.2 mg/dL (0.7-1.3) Estimated GFR (Cockcroft-Gault) 73.1 BUN/Creatinine Ratio 8 (6-20) Glucose Level 100 mg/dL (70-99) Calcium Level 8.6 mg/dL (8.5-10.1) Total Bilirubin 0.5 mg/dL (0.2-1.0) Aspartate Amino Transf (AST/SGOT) 37 U/L (15-37) Alanine Aminotransferase (ALT/SGPT) 41 U/L (16-63) Alkaline Phosphatase 75 U/L (46-116) Total Protein 6.5 g/dL (6.4-8.2) Albumin 2.9 g/dL (3.4-5.0) Albumin/Globulin Ratio 0.8 (1.0-1.7) Triglycerides Level 252 mg/dL (0-150) Cholesterol Level 153 mg/dL (0-200) LDL Cholesterol, Calculated 77 mg/dL (0-100) VLDL Cholesterol, Calculated 50 mg/dL (0-40) Non-HDL Cholesterol Calculated 127 mg/dL (0-129) HDL Cholesterol 26 mg/dL (40-60) Cholesterol/HDL Ratio 5.9 Thyroid Stimulating Hormone (TSH) 3.152 uIU/mL (0.358-3.74) Test 06/13/18 11:11 Glucose (Fingerstick) 364 mg/dL (70-99) Medications Current Medications Sodium Chloride 1,000 ml @ 1,000 mls/hr 1X ONCE IV Last administered on at 19:41; Start 06/09/18 at 19:45; Stop 06/09/18 at 20:44; Status DC Sodium Chloride 1,000 ml @ 1,000 mls/hr 1X ONCE IV Last administered on at 19:43; Start 06/09/18 at 19:45; Stop 06/09/18 at 20:44; Status DC Insulin Human Regular (HumuLIN R VIAL) 10 unit 1X ONCE IV Last administered on 06/09/18at 20:02; Start 06/09/18 at 19:45; Stop 06/09/18 at 19:46; Status DC Insulin Human Regular 150 unit/ Sodium Chloride 151.5 ml @ 0 mls/hr CONT PRN IV SEE I/O RECORD; Start 06/09/18 at 19:45; Stop 06/09/18 at 23:12; Status DC Calcium Gluconate (Calcium Gluconate) 1,000 mg 1X ONCE IVP Last administered on 06/09/18at 20:00; Start 06/09/18 at 20:00; Stop 06/09/18 at 20:01; Status DC Sodium Chloride 1,000 ml @ 250 mls/hr Q4H IV Last administered on 06/09/18at 23 :29; Start 06/09/18 at 20:15; Stop 06/10/18 at 00:56; Status DC Dextrose/Sodium Chloride 1,000 ml @ 250 mls/hr Q4H IV ; Start 06/09/18 at 20:13 ; Stop 06/10/18 at 01:12; Status DC Insulin Human Regular 150 unit/ Sodium Chloride 151.5 ml @ 0 mls/hr CONT PRN PRN IV PER PROTOCOL Last administered on 06/10/18at 01:24; Start 06/09/18 at 20: 15; Stop 06/10/18 at 13:03; Status DC Sodium Phosphate 40 mmol/Sodium Chloride 513.3333 ml @ 83.3 mls/hr 1X PRN PRN IV SEE COMMENTS; Start 06/09/18 at 20:15; Stop 06/10/18 at 13:03; Status DC Sodium Phosphate 20 mmol/Dextrose 256.6667 ml @ 62.5 mls/hr 1X PRN PRN IV SEE COMMENTS; Start 06/09/18 at 20:15; Stop 06/10/18 at 13:03; Status DC Sodium Phosphate 10 mmol/Dextrose 253.3333 ml @ 62.5 mls/hr 1X PRN PRN IV SEE COMMENTS; Start 06/09/18 at 20:15; Stop 06/10/18 at 13:03; Status DC Ondansetron HCl (Zofran) 4 mg PRN Q8HRS PRN IV NAUSEA/VOMITING; Start 06/09/18 at 20:15; Stop 06/09/18 at 20:33; Status DC Fentanyl Citrate (Fentanyl 2ml Vial) 50 mcg PRN Q1HR PRN IV PAIN; Start at 20:15; Stop 06/10/18 at 09:55; Status DC Acetaminophen (Tylenol) 650 mg PRN Q4HRS PRN PO FEVER; Start 06/09/18 at 20:15 ; Stop 06/10/18 at 09:55; Status DC Clonidine HCl (Catapres) 0.1 mg PRN Q1HR PRN PO HYPERTENSION, SEE COMMENTS Last administered on 06/11/18at 07:35; Start 06/09/18 at 20:15 Acetaminophen (Tylenol) 500 mg PRN Q6HRS PRN PO MILD PAIN / TEMP; Start at 20:30 Ondansetron HCl (Zofran) 4 mg PRN Q6HRS PRN IV NAUSEA/VOMITING 1ST CHOICE; Start 06/09/18 at 20:30 Ondansetron HCl (Zofran Odt) 4 mg PRN Q6HRS PRN PO NAUSEA/VOMITING 1ST CHOICE; Start 06/09/18 at 20:30 Morphine Sulfate (Morphine Sulfate) 2 mg PRN Q2HR PRN IV PAIN MILD; Start 06/09 at 20:30 Temazepam (Restoril) 7.5 mg PRN QHS PRN PO INSOMNIA; Start 06/09/18 at 20:30 Sodium Chloride 1,000 ml @ 125 mls/hr Q8H IV Last administered on 06/12/18at 13 :32; Start 06/10/18 at 01:00; Stop 06/13/18 at 10:56; Status DC Insulin Human Lispro (HumaLOG) 6 units TIDWMEALS SQ Last administered on at 17:32; Start 06/10/18 at 12:00; Stop 06/11/18 at 08:22; Status DC Dextrose (Dextrose 50%-Water Syringe) 12.5 gm PRN Q15MIN PRN IV SEE COMMENTS; Start 06/10/18 at 09:45 Insulin Glargine (Lantus) 10 units ONCE ONCE SQ Last administered on at 10:56; Start 06/10/18 at 09:45; Stop 06/10/18 at 10:46; Status DC Insulin Human Lispro (HumaLOG) 9 units 1X ONCE SQ Last administered on at 23:16; Start 06/10/18 at 23:00; Stop 06/10/18 at 23:01; Status DC Insulin Human Lispro (HumaLOG) 10 units TIDWMEALS SQ ; Start 06/11/18 at 12:00; Stop 06/11/18 at 12:29; Status DC Insulin Glargine (Lantus) 30 units QHS SQ ; Start 06/11/18 at 21:00; Stop at 21:00; Status DC Insulin Glargine (Lantus) 10 units 1X STAT SQ Last administered on 06/11/18at 08:32; Start 06/11/18 at 08:20; Stop 06/11/18 at 08:25; Status DC Insulin Glargine (Lantus) 30 units BID SQ Last administered on 06/12/18at 09:13 ; Start 06/11/18 at 21:00; Stop 06/12/18 at 10:52; Status DC Insulin Human Lispro (HumaLOG) 20 units TIDWMEALS SQ Last administered on at 09:13; Start 06/11/18 at 17:00; Stop 06/12/18 at 10:53; Status DC Insulin Human Lispro (HumaLOG) 30 units 1X ONCE SQ Last administered on at 13:14; Start 06/11/18 at 12:30; Stop 06/11/18 at 12:35; Status DC Insulin Glargine (Lantus) 40 units BID SQ Last administered on 06/13/18at 09:24 ; Start 06/12/18 at 21:00 Insulin Human Lispro (HumaLOG) 28 units TIDWMEALS SQ Last administered on at 12:10; Start 06/12/18 at 12:00 Losartan Potassium (Cozaar) 100 mg DAILY PO Last administered on 06/13/18at 09: 19; Start 06/12/18 at 11:00 Active Scripts Active Lantus Solostar (Insulin Glargine,Hum.rec.anlog) 100 Unit/1 Ml Insuln.pen 30 Unit SQ QHS Novolog Flexpen (Insulin Aspart) 100 Unit/1 Ml Insuln.pen 10 Unit SQ TID 30 Days Vitals/I & O Vital Sign - Last 24 Hours 06/12/18 06/12/18 06/12/18 06/12/18 15:40 19:10 19:52 23:00 Temp 97.9 98.1 98.0 97.9 98.1 98.0 Pulse 77 78 62 Resp 16 20 20 B/P (MAP) 125/102 (110) 142/98 (113) 142/79 (100) Pulse Ox 98 98 98 O2 Delivery Room Air Room Air Room Air 06/13/18 06/13/18 06/13/18 06/13/18 03:30 07:00 08:00 09:19 Temp 98.0 97.7 98.0 97.7 Pulse 68 73 73 Resp 20 16 B/P (MAP) 122/77 (92) 150/103 (119) 150/103 Pulse Ox 98 100 O2 Delivery Room Air Room Air Room Air 06/13/18 11:00 Temp 97.5 97.5 Pulse 78 Resp 16 B/P (MAP) 147/77 (100) Pulse Ox 98 O2 Delivery Room Air Intake and Output 06/12/18 06/12/18 06/13/18 15:00 23:00 07:00 Intake Total 1120 ml 0 ml Output Total 400 ml Balance 720 ml 0 ml GREGORY ARANDA MD Jun 13, 2018 14:45
[2018-06-13] MEDS ORDERED: LOSA50TA2 PO (14:52)
[2018-06-13] MEDS ORDERED: INSU100I11 SQ (14:52)
[2018-06-13] MEDS ORDERED: INSU100I13 SQ (14:52)
[2018-06-13 15:35] VITALS: BP 106/108
[2018-06-13] MEDS ORDERED: METF500T5 PO (16:00)
[2018-06-13] MEDS ORDERED: RIVA15TA PO (16:00)
[2018-06-13] MEDS ORDERED: ATOR10TA PO (16:00)
--- NOTE | 2018-06-13 16:03 | PDOC3 ---
*Discharge Summary* Date of Admission: Jun 09, 2018 Date of Discharge: Jun 13, 2018 Admitting Diagnosis Problems Medical Problems: (1) DKA (diabetic ketoacidoses) Status: Acute (2) Hyperkalemia Status: Acute (3) Hyponatremia Status: Acute Final Diagnosis 1-Dibetic ketoacidosis 2-DM type II uncontrolled insulin requiring 3-Hyperkalemia, hyponatremia 4-CAD, Hx CABG 5-Hx Asthma 6-CKD likely due to DM 7-HTN, HCVD add ARB 8-fatty liver 9- Obesity Problems Medical Problems: (1) DKA (diabetic ketoacidoses) Status: Acute (2) Hyperkalemia Status: Acute (3) Hyponatremia Status: Acute CONSULTS renal US, CXR Procedures Renal US, CXR Brief Hospital Course Mr. Javier is a 68 old [sex] who presented with [ ] Disposition/Orders: D/C to Home CONDITION AT DISCHARGE: Improved, Stable Diet: Renal, Consistent Carbohydrate Home Meds Active Scripts Atorvastatin Calcium (LIPITOR) 10 Mg Tablet, 1 TAB PO DAILY, #30 TAB 5 Refills Prov:GREGORY ARANDA MD 06/13/18 Rivaroxaban (XARELTO) 15 Mg Tablet, 15 MG PO DAILY for 30 Days, #30 TAB Prov:GREGORY ARANDA MD 06/13/18 Metformin Hcl (METFORMIN HCL) 500 Mg Tablet, 500 MG PO BIDWMEALS for ANTI- DIABETIC for 30 Days, #60 TAB 0 Refills Prov:GREGORY ARANDA MD 06/13/18 Insulin Lispro (HUMALOG) 100 Unit/1 Ml Insuln.pen, 28 UNITS SQ TIDWMEALS for 30 Days, #10 EACH Prov:GREGORY ARANDA MD 06/13/18 Insulin Glargine,Hum.rec.anlog (LANTUS SOLOSTAR) 100 Unit/1 Ml Insuln.pen, 40 UNITS SQ BID for 30 Days, #10 EACH Prov:GREGORY ARANDA MD 06/13/18 Losartan Potassium (COZAAR) 50 Mg Tablet, 100 MG PO DAILY for 30 Days, #30 TAB Prov:GREGORY ARANDA MD 06/13/18 Insulin Glargine,Hum.rec.anlog (LANTUS SOLOSTAR) 100 Unit/1 Ml Insuln.pen, 30 UNIT SQ QHS, #15 ML 3 Refills Prov:BRANDI VILLASENOR MD 06/11/18 Insulin Aspart (NOVOLOG FLEXPEN) 100 Unit/1 Ml Insuln.pen, 10 UNIT SQ TID for 30 Days, SYR Prov:BRANDI VILLASENOR MD 06/11/18 Scheduled Atorvastatin Calcium (Lipitor), 1 TAB PO DAILY Insulin Aspart (Novolog Flexpen), 10 UNIT SQ TID Insulin Glargine,Hum.rec.anlog (Lantus Solostar), 30 UNIT SQ QHS Insulin Glargine,Hum.rec.anlog (Lantus Solostar), 40 UNITS SQ BID Insulin Lispro (Humalog), 28 UNITS SQ TIDWMEALS Losartan Potassium (Cozaar), 100 MG PO DAILY Metformin Hcl (Metformin Hcl), 500 MG PO BIDWMEALS Rivaroxaban (Xarelto), 15 MG PO DAILY Scripts Atorvastatin Calcium (LIPITOR) 10 Mg Tablet 1 TAB PO DAILY, #30 TAB 5 Refills Prov: GREGORY ARANDA MD 06/13/18 Rivaroxaban (XARELTO) 15 Mg Tablet 15 MG PO DAILY for 30 Days, #30 TAB Prov: GREGORY ARANDA MD 06/13/18 Metformin Hcl (METFORMIN HCL) 500 Mg Tablet 500 MG PO BIDWMEALS for ANTI-DIABETIC for 30 Days, #60 TAB 0 Refills Prov: GREGORY ARANDA MD 06/13/18 Insulin Lispro (HUMALOG) 100 Unit/1 Ml Insuln.pen 28 UNITS SQ TIDWMEALS for 30 Days, #10 EACH Prov: GREGORY ARANDA MD 06/13/18 Insulin Glargine,Hum.rec.anlog (LANTUS SOLOSTAR) 100 Unit/1 Ml Insuln.pen 40 UNITS SQ BID for 30 Days, #10 EACH Prov: GREGORY ARANDA MD 06/13/18 Losartan Potassium (COZAAR) 50 Mg Tablet 100 MG PO DAILY for 30 Days, #30 TAB Prov: GREGORY ARANDA MD 06/13/18 Insulin Glargine,Hum.rec.anlog (LANTUS SOLOSTAR) 100 Unit/1 Ml Insuln.pen 30 UNIT SQ QHS, #15 ML 3 Refills Prov: BRANDI VILLASENOR MD 06/11/18 Insulin Aspart (NOVOLOG FLEXPEN) 100 Unit/1 Ml Insuln.pen 10 UNIT SQ TID for 30 Days, SYR Prov: BRANDI VILLASENOR MD 06/11/18 FOLLOW UP APPOINTMENT: pcp 1-2 weeeks Time Spent Total time spent with patient [45] minutes for coordination of care, counseling , and education. GREGORY ARANDA MD Jun 13, 2018 16:03
== END 2018-06-13 18:30 | disposition home or self-care (01) | DRG 682 ==
LOC: ER 16:48 → ED HOLD 17:52 → 1 WEST ICU 22:48 → 5 SOUTH 06-10 13:30
PROVIDERS: ADMIT Internal Medicine; ATTEND Internal Medicine
DX: N17.0 Acute kidney failure with tubular necrosis (principal); E11.10 Type 2 diabetes mellitus with ketoacidosis without coma; E87.1 Hypo-osmolality and hyponatremia; I13.0 Hypertensive heart and chronic kidney disease with heart failure and stage 1 through stage 4 chronic kidney disease, or unspecified chronic kidney disease; E78.00 Pure hypercholesterolemia, unspecified; E87.5 Hyperkalemia; I25.10 Atherosclerotic heart disease of native coronary artery without angina pectoris; E66.9 Obesity, unspecified; I50.9 Heart failure, unspecified; J45.909 Unspecified asthma, uncomplicated; K76.0 Fatty (change of) liver, not elsewhere classified; E11.22 Type 2 diabetes mellitus with diabetic chronic kidney disease; N18.9 Chronic kidney disease, unspecified; Z79.4 Long term (current) use of insulin; I25.2 Old myocardial infarction; Z83.3 Family history of diabetes mellitus; Z91.19 Patient's noncompliance with other medical treatment and regimen; Z95.1 Presence of aortocoronary bypass graft; Z86.718 Personal history of other venous thrombosis and embolism; Z68.36 Body mass index [BMI] 36.0-36.9, adult
CPT/HCPCS: 36415; 71045; 76770; 80048; 80053; 80061; 81001; 82550; 82962; 83036; 83690; 83735; 83880; 84100; 84443; 84484; 85025; 85027; 85610; 85651; 87641; 93005; 96361; 96374; J0610; J1815; J7030; 99285-25